=== PATIENT | male | born 1990 | race Caucasian/White ===

== ENCOUNTER 2016-10-06 15:06 | Emergency (ER) | payer OTHER ==
[2016-10-06 15:54] VITALS: BP 134/80; PULSE 81; TEMP 97.9; BMI 26.6
--- NOTE | 2016-10-06 15:54 | PDOC ---
Rapid Medical Evaluation Time Seen by Provider: 10/06/16 15:53 Medical Evaluation: I have performed a brief in-person evaluation of this patient. The patient presents with a chief complaint of: R 3rd finger pain after bitten by his dog 3 days ago. Dog is fully vaccinated. Presents for eval because of pain, was concerned it might be getting infected. Pertinent physical exam findings: R 3rd finger slightly swollen, tender to distal phalanx with puncture skye noted. FROM. I have ordered the following: none The patient will proceed to the ED for further evaluation
[2016-10-06] MEDS ORDERED: DIPHTH,PERTUSS(ACELL),TET 0.5 ML DISP.SYRIN IM ONE (16:42)
--- NOTE | 2016-10-06 17:49 | PDOC ---
History of Present Illness - General Chief Complaint: Bite Stated Complaint: DOG BITE Time Seen by Provider: 10/06/16 15:53 History Source: Patient Exam Limitations: No Limitations - History of Present Illness Initial Comments: 10/06/16 17:43 26 yr male bit by his own dog while giving dog medication. Pt is a [place]. pt was bit yesterday afternoon to right middle digit. Pt here for eval. dog is UTD with vaccines. no redness or drainage . Past History - Past Medical History Allergies/Adverse Reactions: Allergies Allergy/AdvReac Type Severity Reaction Status Date / Time No Known Allergies Allergy Verified 10/06/16 15:55 Home Medications: Ambulatory Orders Amoxicillin/Potassium Clav [Augmentin 875-125 Tablet] 1 each PO BID #10 tablet 10/06/16 Other medical history: denies medical hx - Immunization History Immunization Up to Date: Yes - Psycho/Social/Smoking Cessation Hx Suicidal Ideation: No Smoking History: Never smoked Hx Alcohol Use: No Drug/Substance Use Hx: No Review of Systems - Review of Systems Able to Perform ROS?: Yes Is the patient limited Cymraes proficient: No Constitutional: No: Symptoms Reported HEENTM: No: Symptoms Reported Respiratory: No: Symptoms reported Cardiac (ROS): No: Symptoms Reported ABD/GI: No: Symptoms Reported : No: Symptoms Reported Musculoskeletal: No: Symptoms Reported Integumentary: Yes: See HPI *Physical Exam - Vital Signs Last Vital Signs Temp Pulse Resp BP Pulse Ox 97.9 F 81 16 134/80 97 10/06/16 15:51 10/06/16 15:51 10/06/16 15:51 10/06/16 15:51 10/06/16 15:51 - Physical Exam General Appearance: Yes: Nourished, Appropriately Dressed HEENT: positive: EOMI, FACUNDO, TMs Normal, Pharynx Normal Neck: positive: Supple. 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 teacher II-XII NML intact, Fully Oriented, Alert, Normal Mood/ Affect, Normal Response, Motor Strength 5/5 Procedures - Laceration/Wound Repair Right Distal 3rd digit Finger Wound Length: to 2.5 cm Wound Explored: contaminated Wound's Depth, Shape: linear (puncture 1cm ) Irrigated w/ Saline: Yes Betadine Prep: Yes Progress: 10/06/16 17:46 cleaned with betadine soap and water bacitracin and finger dressing placed ED Treatment Course - RADIOLOGY Radiology Studies Ordered: Category Date Time Status FINGER(S) RIGHT [RAD] Stat Radiology 10/06/16 16:42 Completed - Medications Given in the ED: ED Medications Discontinued Medications Generic Name Dose Route Start Last Admin Trade Name Freq PRN Reason Stop Dose Admin Diphtheria/Tetanus/Acell Pertussis 0.5 ml 10/06/16 16:42 10/06/16 16:52 Boostrix - IM 10/06/16 16:43 0.5 ml .ONCE ONE Administration Medical Decision Making - Medical Decision Making 10/06/16 17:46 cc: dog bite middle digit right hand forms for [facility] filled out xray done negative wound cleaned augmentin for 5 days I have discussed with pt to watch for signs of infection and to follow with or return to ER right away. pt understands the instructions and what to look for in infection. 10/06/16 20:00 *DC/Admit/Observation/Transfer Diagnosis at time of Disposition: Dog bite Qualifiers: Encounter type: initial encounter Qualified Code(s): W54.0XXA - Bitten by dog, initial encounter - Discharge Dispostion Disposition: HOME Condition at time of disposition: Stable - Prescriptions Prescriptions: Amoxicillin/Potassium Clav [Augmentin 875-125 Tablet] 1 each PO BID #10 tablet - Referrals Referrals: Tex Pereira MD [Staff Physician] - - Patient Instructions Additional Instructions: keep clean and dry apply bacitracin and bandaid daily take Augmentin as directed for 5 days follow with hand surgeon if any worsening symptoms
== END 2016-10-06 17:59 | disposition home or self-care (01) ==
LOC: JERFT 15:06
PROC: 3E0234Z Introduction of Serum, Toxoid and Vaccine into Muscle, Percutaneous Approach (ICD-10-PCS; principal; 2016-10-06)
DX: S61.252A Open bite of right middle finger without damage to nail, initial encounter (principal); W54.0XXA Bitten by dog, initial encounter; Y93.89 Activity, other specified; Y92.009 Unspecified place in unspecified non-institutional (private) residence as the place of occurrence of the external cause
CPT/HCPCS: 73140-TC-RT; 90715; 99281-25